=== PATIENT | female | born 1985 | race Caucasian/White ===

== ENCOUNTER 2016-10-13 18:44 | Inpatient (IN) | payer BC ==
[2016-10-13] VITALS (10 sets, daily range): BP systolic 103–139; BP diastolic 58–76; PULSE 64–93; TEMP 98
[~2016-10-13] VITALS: Ht 162.6 cm; Wt 72.3 kg
[~2016-10-13 18:44] MED LIST: ADVAIR IH; ALBUTEROL0.09 MG/A1 IH; ALLEGRA60 MG PO; COLACE 100100 MG/CAP PO; MOTRIN 800800 MG/TAB PO; NO HOME MEDICATIONS; PERCOCET 325 MG1 TA2 PO; PRENATAL1 TA1 PO; ZITHROMAX Z PA250 MG PO; [UNRECOGNIZED DRUG - OTHER] PO
[2016-10-13 20:11] LABS: BASO % 0.2 % (0.0-2.0); EOS # 0.1 (0.0-0.7); EOS % 0.4 % (0-4.0); GRAN # 8.6 (1.4-6.5); HEMATOCRIT 34.7 % (37.0-47.0); HEMOGLOBIN 12.3 g/dl (12.5-16.0); LYMPH # 1.5 (1.2-3.4); MEAN CELL VOLUME 100 fl (80.0-100.0); MEAN CORPUSCULAR HEMOGLOBIN 35 pg (27.0-31.0); MEAN CORPUSCULAR HGB CONC 35 g/dl (33.0-37.0); MEAN PLATELET VOLUME 10.1 fl (7.4-10.4); MONO # 0.9 (0.1-0.6); MONO % 8.3 % (1.7-9.3); PLATELET COUNT 190 K/mm3 (130-400); RED BLOOD COUNT 3.47 M/mm3 (4.10-5.30); REDCELL DISTRIBUTION WIDTH-CV 12.7 % (11.5-14.5); WHITE BLOOD COUNT 11.2 K/mm3 (4.8-10.8)
[2016-10-14] VITALS: BP 104/70; PULSE 83; TEMP 97.7
[2016-10-14 04:00] VITALS: BP 110/62; PULSE 78; TEMP 98.1
[2016-10-14 06:50] VITALS: BP 111/60; PULSE 76
[2016-10-14 16:14] VITALS: BP 101/59; PULSE 74
[2016-10-14 20:25] VITALS: BP 103/74; PULSE 70; TEMP 97.8
== END 2016-10-14 21:47 | disposition home or self-care (01) | DRG 775 ==
LOC: LDRO 18:44 → OB 19:40 → LDR 19:40 → OB 22:30
PROVIDERS: Obstetrics & Gynecology
PROC: 10E0XZZ Delivery of Products of Conception, External Approach (ICD-10-PCS; principal; 2016-10-13)
PROC: 0HQ9XZZ Repair Perineum Skin, External Approach (ICD-10-PCS; 2016-10-13)
DX: O36.0130 Maternal care for anti-D [Rh] antibodies, third trimester, not applicable or unspecified (principal); O70.0 First degree perineal laceration during delivery; Z3A.38 38 weeks gestation of pregnancy; Z37.0 Single live birth
CPT/HCPCS: J2590; J2791; J7120